=== PATIENT | male | born 1975 | race Caucasian/White ===

== ENCOUNTER 2019-04-20 13:34 | Emergency (ER) | payer BC, OTHER ==
[2019-04-20 14:28] LABS: ABS Eosinophils 0.1 10^3/ul (0-0.6); ABS Lymphocytes 1.3 10^3/ul (1.0-4.8); ABS Monocytes 0.7 10^3/ul (0-0.8); ABS Neutrophils 5.1 10^3/ul (1.5-7.7); Eosinophil % 0.9 %; Hematocrit 48 % (42-52); Hemoglobin 16.7 g/dL (14.0-18.0); Lymphocyte % 18.4 %; Mean Corpuscular HGB Conc 35 g/dL (31-36); Mean Corpuscular Hemoglobin 31 pg (27-31); Mean Corpuscular Volume 90 fL (80-94); Mean Platelet Volume 7.8 fL (7.4-10.4); Platelet Count 243 10^3/uL (150-450); Red Blood Count 5.36 10^6 /uL (4.18-5.48); Red Cell Distribution Width 13 % (10-15); White Blood Count 7.2 10^3/uL (3.5-10.8)
[2019-04-20 14:47] LABS: Albumin 4.6 g/dL (3.2-5.2); Albumin/Globulin Ratio 1.7 (1-3); BUN/Creatinine Ratio 18.2 (8-20); Calcium 9.7 mg/dL (8.6-10.3); EGFR African American 100.8 (>60); EGFR Non-African American 83.3 (>60); Globulin 2.7 g/dL (2-4); Total Bilirubin 0.4 mg/dL (0.2-1.0); Total Protein 7.3 g/dL (6.4-8.9)
[2019-04-20 14:51] LABS: INR 1.01 (0.82-1.09)
[2019-04-20 15:35] LABS: Potassium 4.6 mmol/L (3.5-5.0)
--- NOTE | 2019-04-20 16:43 | ED ---
HPI Chest Pain - HPI Summary HPI Summary: Patient complains of 2 episodes of chest pain and shortness of breath, diaphoresis today.. No active chest pain or SOB here in the ED. First episode occurred 8am, lasted an hour and then resolved. Second episode started at 10 AM and lasted until 2 PM. patient states significant increase in recent stress. History of anxiety. Denies recent chest pain or shortness of breath with exertion. Has not seen PCP for 12 years. Denies fever, cough, sore throat, N/3/D, abdominal pain, change in urine, change in BM. Medical history is none. Positive smoker, occasional EtOH, denies recreational stimulants, energy drinks, excessive caffeine. - History of Current Complaint Chief Complaint: EDChestPainROMI Time Seen by Provider: 04/20/19 16:41 Hx Obtained From: Patient Onset/Duration: Started Hours Ago Timing: Intermittent, Lasting Hours Initial Severity: Mild Current Severity: None Pain Intensity: 2 Pain Scale Used: 0-10 Numeric Chest Pain Location: Left Anterior Chest Pain Radiates: No Character: Tightness Aggravating Factor(s): Nothing Alleviating Factor(s): Spontaneous Resolution Associated Signs and Symptoms: Positive: Chest Pain, Shortness of Breath - Allergy/Home Medications Allergies/Adverse Reactions: Allergies Allergy/AdvReac Type Severity Reaction Status Date / Time azythromycin Allergy Rash Uncoded 04/20/19 13:53 PMH/Surg Hx/FS Hx/Imm Hx Endocrine/Hematology History: Denies: Hx Diabetes, Hx Thyroid Disease Cardiovascular History: Denies: Hx Hypertension Respiratory History: Denies: Hx Asthma, Hx Chronic Obstructive Pulmonary Disease (COPD) GI History: Denies: Hx Ulcer Musculoskeletal History: Denies: Hx Rheumatoid Arthritis, Hx Osteoporosis Sensory History: Denies: Hx Deafness Opthamlomology History: Denies: Hx Legally Blind EENT History: Denies: Hx Hearing Problem Neurological History: Denies: Hx Dementia Infectious Disease History: No Infectious Disease History: Denies: Hx Hepatitis, Hx Human Immunodeficiency Virus (HIV), Traveled Outside the [place] in Last 30 Days - Family History Known Family History: Positive: Non-Contributory - Social History Alcohol Use: None Substance Use Type: Reports: None Smoking Status (MU): Heavy Every Day Tobacco Smoker Review of Systems Constitutional: Negative Eyes: Negative ENT: Negative Positive: Chest Pain Positive: Shortness Of Breath Gastrointestinal: Negative Genitourinary: Negative Musculoskeletal: Negative Skin: Negative Neurological: Negative Psychological: Normal All Other Systems Reviewed And Are Negative: Yes Physical Exam - Summary Physical Exam Summary: Chest pain not reproducible. Lung sounds clear to auscultation bilaterally. RRR. Triage Information Reviewed: Yes Vital Signs On Initial Exam: Initial Vitals Temp Pulse Resp BP Pulse Ox 98.8 F 94 16 150/89 98 04/20/19 13:48 04/20/19 13:48 04/20/19 13:48 04/20/19 13:48 04/20/19 13:48 Vital Signs Reviewed: Yes Appearance: Positive: Well-Appearing Skin: Positive: Warm Head/Face: Positive: Normal Head/Face Inspection Eyes: Positive: Normal Neck: Positive: Supple Respiratory/Lung Sounds: Positive: Clear to Auscultation Cardiovascular: Positive: Normal Abdomen Description: Positive: Nontender Musculoskeletal: Positive: Normal Neurological: Positive: Normal Psychiatric: Positive: Normal AVPU Assessment: Alert - [place] Coma Scale Best Eye Response: 4 - Spontaneous Best Motor Response: 6 - Obeys Commands Best Verbal Response: 5 - Oriented Coma Scale Total: 15 Procedures - Sedation Patient Received Moderate/Deep Sedation with Procedure: No Diagnostics - Vital Signs Vital Signs Temp Pulse Resp BP Pulse Ox 04/20/19 16:41 16 04/20/19 15:29 98.3 F 77 14 125/82 99 04/20/19 13:48 98.8 F 94 16 150/89 98 - Laboratory Lab Results: Lab Results 04/20/19 04/20/19 04/20/19 Range/Units 14:20 14:20 14:20 WBC 7.2 (3.5-10.8) 10^3/uL RBC 5.36 (4.18-5.48) 10^6 /uL Hgb 16.7 (14.0-18.0) g/dL Hct 48 (42-52) % MCV 90 (80-94) fL MCH 31 (27-31) pg MCHC 35 (31-36) g/dL RDW 13 (10-15) % Plt Count 243 (150-450) 10^3/uL MPV 7.8 (7.4-10.4) fL Neut % (Auto) 71.4 % Lymph % (Auto) 18.4 % [place] % (Auto) 9.0 % Eos % (Auto) 0.9 % Baso % (Auto) 0.3 % Absolute Neuts (auto) 5.1 (1.5-7.7) 10^3/ul Absolute Lymphs (auto) 1.3 (1.0-4.8) 10^3/ul Absolute Monos (auto) 0.7 (0-0.8) 10^3/ul Absolute Eos (auto) 0.1 (0-0.6) 10^3/ul Absolute Basos (auto) 0.0 (0-0.2) 10^3/ul Absolute Nucleated RBC 0.0 10^3/ul Nucleated RBC % 0.0 INR (Anticoag Therapy) 1.01 (0.82-1.09) Sodium 137 (135-145) mmol/L Potassium 4.6 (3.5-5.0) mmol/L Chloride 104 (101-111) mmol/L Carbon Dioxide 28 (22-32) mmol/L Anion Gap 5 (2-11) mmol/L BUN 18 (6-24) mg/dL Creatinine 0.99 (0.67-1.17) mg/dL Est GFR ( Amer) 100.8 (>60) Est GFR (Non-Af Amer) 83.3 (>60) BUN/Creatinine Ratio 18.2 (8-20) Glucose 86 (70-100) mg/dL Calcium 9.7 (8.6-10.3) mg/dL Total Bilirubin 0.40 (0.2-1.0) mg/dL AST 17 (13-39) U/L ALT 25 (7-52) U/L Alkaline Phosphatase 75 (34-104) U/L Troponin I 0.00 (<0.03) ng/mL Total Protein 7.3 (6.4-8.9) g/dL Albumin 4.6 (3.2-5.2) g/dL Globulin 2.7 (2-4) g/dL Albumin/Globulin Ratio 1.7 (1-3) Result Diagrams: 04/20/19 14:20 04/20/19 14:20 Lab Statement: Any lab studies that have been ordered have been reviewed, and results considered in the medical decision making process. Chest Pain Course/Dx - Course Course Of Treatment: Patient complains of 2 episodes of chest pain and shortness of breath, diaphoresis today.. No active chest pain or SOB here in the ED. First episode occurred 8am, lasted an hour and then resolved. Second episode started at 10 AM and lasted until 2 PM. patient states significant increase in recent stress. History of anxiety. Denies recent chest pain or shortness of breath with exertion. Has not seen PCP for 12 years. Denies fever, cough, sore throat, N/3/D, abdominal pain, change in urine, change in BM. Medical history is none. Positive smoker, occasional EtOH, denies recreational stimulants, energy drinks, excessive caffeine. Vital signs within normal limits. Labs unremarkable. Serial troponins negative. EKG sinus tachycardia, heart rate of 101, no prior on file. Heart score 3. - Diagnoses Provider Diagnoses: Chest pain Discharge ED - Sign-Out/Discharge Documenting (check all that apply): Patient Departure - Discharge Plan Condition: Stable Disposition: HOME Patient Education Materials: Chest Pain (ED) Forms: *Work Release Referrals: No Primary Care Phys,NOPCP [Primary Care Provider] - Stanley Graf MD [Medical Doctor] - [facility] [Outside] Additional Instructions: Follow-up with [facility] and isolation washer Dr. Graf for further evaluation of chest pain. Return to the ED for any new or worsening symptoms. - Billing Disposition and Condition Condition: STABLE Disposition: Home - Attestation Statements Provider Attestation: I was available for consultation for this patient. I did not evaluate the patient, or participate in any medical decision making or disposition decisions unless I am specifically named in the chart as having consulted on the patient. If I have consulted on the patient, please see my own ED note on the patient encounter. Dann Adams MD
[2019-04-20 18:18] VITALS: BP 146/83
== END 2019-04-20 18:17 | disposition home or self-care (01) ==
LOC: ED 13:34
DX: R07.9 Chest pain, unspecified (principal); F41.9 Anxiety disorder, unspecified; F17.200 Nicotine dependence, unspecified, uncomplicated; Z88.1 Allergy status to other antibiotic agents
CPT/HCPCS: 36415; 80053; 84484; 85025; 85610; 93005; 99282